=== PATIENT | female | born 1965 | race Asian ===

== ENCOUNTER 2022-10-19 11:38 | Day surgery (SDC) | payer OTHER ==
[2022-10-19] MEDS ORDERED: ONDANSETRON 4 MG/2 ML VIAL IVP STA (12:04)
[2022-10-19] MEDS ORDERED: HYDROmorphone 1 MG/ML CARPUJECT IVP STA (12:04)
--- NOTE | 2022-10-19 12:31 | ED Physician Documentation ---
History of Present Illness - Stated complaint Stated Complaint: ABD PX - Chief complaint Chief Complaint: Abd Pain - Additonal information Additional information: 57-year-old female presents emergency department for evaluation of cute onset abdominal pain. Reports that at 3 AM she woke up and she had pain in her upper abdomen. She thought maybe she had to use the restroom but did not have a bowel movement though later in the morning she did have some diarrhea. She states that she has been nauseated but has had no vomiting. No melena or hematochezia. No fevers. Denies any pertinent past surgical history. Takes no prescribed medications. Patient is otherwise healthy and well-appearing. When the pain did not go away around 9 AM she called her primary office and was told to come to the ER for further evaluation. Review of Systems Constitutional: denies: Fever Cardiac: reports: Reviewed and negative Respiratory: reports: Reviewed and negative GI: reports: Abdominal Pain, Nausea, Diarrhea : reports: Reviewed and negative Skin: reports: Reviewed and negative Musculoskeletal: reports: Reviewed and negative PD PAST MEDICAL HISTORY - Present Medications Home Medications: Ambulatory Orders Medication Instructions Recorded Confirmed No Known Home Medications 10/19/22 10/19/22 - Allergies Allergies/Adverse Reactions: Allergies Allergy/AdvReac Type Severity Reaction Status Date / Time No Known Drug Allergies Allergy Verified 10/19/22 11:51 PD ED PE NORMAL - General General: Alert and oriented X 3, No acute distress, Well developed/nourished - HEENT HEENT: Atraumatic, Moist mucous membranes - Cardiac Cardiac: RRR, No murmur - Respiratory Respiratory: Clear bilaterally - Abdomen Abdomen: Normal bowel sounds, Soft. No: Non tender (Focal tenderness elicited with palpation of the right lower quadrant. No guarding or rebound. Negative Sanchez's.) - Derm Derm: Normal color, Warm and dry, No rash - Extremities Extremities: No deformity - Neuro Neuro: Alert and oriented X 3, operations boardman 2-12 intact Eye Opening: Spontaneous Motor: Obeys Commands Verbal: Oriented GCS Score: 15 Results - Vitals Vitals: Vital Signs - 24 hr 10/19/22 10/19/22 10/19/22 11:48 12:23 13:28 Heart Rate 103 H 62 85 Respiratory 15 16 16 Rate Blood Pressure 124/80 138/80 H O2 Saturation 100 100 100 10/19/22 10/19/22 10/19/22 14:14 15:06 15:33 Heart Rate 87 78 Respiratory 16 15 16 Rate Blood Pressure 147/78 H 144/76 H O2 Saturation 99 100 10/19/22 10/19/22 16:25 16:56 Heart Rate 68 Respiratory 15 16 Rate Blood Pressure O2 Saturation 99 Oxygen O2 Source Room air - Labs Labs: Laboratory Tests 10/19/22 10/19/22 10/19/22 12:15 12:15 12:35 WBC 14.2 H RBC 4.37 Hgb 12.9 Hct 38.7 MCV 88.6 MCH 29.5 MCHC 33.3 RDW 12.8 Plt Count 189 MPV 9.6 Neut # (Auto) 13.5 H Lymph # (Auto) 0.3 L [place] # (Auto) 0.4 Eos # (Auto) 0.0 Baso # (Auto) 0.0 Absolute Nucleated RBC 0.00 Nucleated RBC % 0.0 Sodium 138 Potassium 3.8 Chloride 103 Carbon Dioxide 28 Anion Gap 7.0 BUN 14 Creatinine 0.7 Estimated GFR (MDRD) 86 L Glucose 143 H Calcium 9.3 Total Bilirubin 1.0 AST 22 ALT 19 Alkaline Phosphatase 67 Total Protein 7.7 Albumin 4.5 Globulin 3.2 Albumin/Globulin Ratio 1.4 Lipase 32 Urine Color YELLOW Urine Clarity CLEAR Urine pH 7.0 Ur Specific [place] 1.015 Urine Protein TRACE Urine Glucose (UA) NEGATIVE Urine Ketones TRACE Urine Occult Blood SMALL H Urine Nitrite NEGATIVE Urine Bilirubin NEGATIVE Urine Urobilinogen 0.2 (NORMAL) Ur Leukocyte Esterase NEGATIVE Urine RBC 6-10 H Urine WBC 0-3 Ur Squamous Epith Cells RARE Squamous Urine Bacteria Few Urine Mucus Marked Strands Ur Microscopic Review INDICATED Urine Culture Comments NOT INDICATED - Rads (name of study) abd US limited Relevant Findings:: Other (Per radiologic technologist mammogram possible appendicolith with associated lymphadenopathy) CT abd Relevant Findings:: Final report received (Acute appendicitis. Appendix markedly dilated and obstructed by fecalith. There is some free fluid in the pelvis, cannot exclude recent rupture. Mild ileus pattern) PD Medical Decision Making - ED course Complexity details: reviewed results, re-evaluated patient, considered differential, d/w patient ED course: 57-year-old female presents to the emergency department for evaluation of acute onset upper abdominal pain that woke her from sleep about 3 AM. Patient initially thought that she had to have a bowel movement but ended up having a small amount of diarrhea. When about 6 hours later the pain had not resolved she presents here to the ER. She did have some nausea but no vomiting. No fevers. No pertinent past surgical history. On presentation she is alert and well-appearing. However on abdominal exam there was focal tenderness in the right lower quadrant of the abdomen. I did obtain CBC, electrolytes and urinalysis. Per my interpretation mild leukocytosis with a white count just over 14,000 is noted. No worrisome anemia or other electrolyte derangement. Urinalysis shows no signs of infection. Unfortunately today [facility] does not have CT imaging available. Given the focal tenderness in the right lower quadrant as well as the patient's small body habitus I elected to perform a limited abdominal ultrasound to evaluate for the possibility of acute appendicitis. Per the radiologic technologist mammogram there is some associated lymphadenopathy in the right lower quadrant of the abdomen and a possible appendicolith. With this information and mild white count as well as location of the pain I then spoke on the phone with our surgeon Dr. Akira Herrera. Currently he is in office seeing patients and will come to the ER later to evaluate the patient but in the interim and given lack of CT imaging available today we will proceed with an MRI of the abdomen to help rule out acute micheline endicitis as possible cause of abdominal pain. I have reevaluated the patient and she continues to have pain in the lower abdomen. We will at this point administer a liter of IV fluids as well as 4 mg of morphine for further analgesia. 1600: CT scanner has now come back online and CT was ordered instead of MRI. Unfortunately the CT does show a rather large appendix with a fecalith. Small amount of free fluid within the pelvis which could be a sign of early perforation. I spoke on the phone with Dr. Herrera surgeon on-call. He will be here shortly to evaluate the patient. I have ordered 3.375 g of Zosyn. Patient is n.p.o. and otherwise remains hemodynamically stable It is come to our attention that the patient is the of our on-call surgeon Dr. Herrera (pt's did not initially notify the staff of this.) Today the emergency department evaluation does constitute an emergency. There is no other attending surgeon available at this time that could complete the operation nec essary for a likely perforated appendicitis. The patient has also declined to be transferred to an outlying hospital for further treatment of the appendicitis. As such Dr. Herrera will continue to treat his for the management of acute likely perforated appendicitis. Departure - Departure Disposition: ED Transfer to [facility] Clinical Impression: Acute appendicitis Qualifiers: Acute appendicitis type: unspecified acute appendicitis type Qualified Code(s): K35.80 - Unspecified acute appendicitis Condition: Serious
[2022-10-19 12:33] LABS: BASOPHILS % (AUTO) 0.1 %; HCT - HEMATOCRIT 38.7 % (37.0-47.0); HGB - HEMOGLOBIN 12.9 g/dL (12.0-16.0); LYMPHOCYTES # (AUTO) 0.3 10^3/uL (1.5-3.5); LYMPHOCYTES % (AUTO) 2.3 %; MEAN CORPUSCULAR HEMOGLOBIN 29.5 pg (27.0-31.0); MEAN CORPUSCULAR HGB CONC 33.3 g/dL (32.0-36.0); MEAN CORPUSCULAR VOLUME 88.6 fL (81.0-99.0); MEAN PLATELET VOLUME 9.6 fL (7.9-10.8); MONOCYTES # (AUTO) 0.4 10^3/uL (0.0-1.0); MONOCYTES % (AUTO) 2.6 %; NEUTROPHILS # (AUTO) 13.5 10^3/uL (1.5-6.6); NEUTROPHILS % (AUTO) 94.6 %; PLT - PLATELET COUNT 189 10^3/uL (130-450); RED BLOOD COUNT 4.37 10^6/uL (4.20-5.40); RED CELL DISTRIBUTION WIDTH 12.8 % (12.0-15.0); WHITE BLOOD COUNT 14.2 x10^3/uL (4.8-10.8)
[2022-10-19 12:41] LABS: BILIRUBIN,URINE NEGATIVE (NEGATIVE); GLUCOSE, URINE (UA) NEGATIVE (NEGATIVE); KETONES,URINE (UA) TRACE mg/dL (NEGATIVE); LEUKOCYTE ESTERASE, URINE NEGATIVE (NEGATIVE); NITRITE,URINE NEGATIVE (NEGATIVE); OCCULT BLOOD,URINE SMALL (NEGATIVE); PROTEIN,URINE TRACE mg/dL (NEGATIVE); UROBILINOGEN,URINE 0.2 (NORMAL) E.U./dL (NORMAL)
[2022-10-19 12:42] LABS: CLARITY,URINE CLEAR (CLEAR)
[2022-10-19 12:44] LABS: ALBUMIN 4.5 g/dL (3.2-5.5); ALBUMIN/GLOBULIN RATIO 1.4 (1.0-2.2); CALCIUM 9.3 mg/dL (8.5-10.3); CREATININE 0.7 mg/dL (0.4-1.0); POTASSIUM 3.8 mmol/L (3.5-5.0); TOTAL PROTEIN 7.7 g/dL (6.7-8.2)
[2022-10-19 12:50] LABS: BACTERIA,URINE Few /HPF (None Seen); MUCUS,URINE Marked Strands; SQUAMOUS EPITHELIAL CELL,UR RARE Squamous (<= Few); WBC,URINE 0-3 /HPF (0-5)
[2022-10-19] MEDS ORDERED: SODIUM CHLORIDE 0.9% 1,000 ML IV STA (13:55)
[2022-10-19] MEDS ORDERED: MORPHINE 2 MG/ML CARPUJECT IVP STA (13:56)
--- NOTE | 2022-10-19 13:56 | Ultrasound Report ---
PROCEDURE: Abdomen Limited INDICATIONS: RLQ PAIN TECHNIQUE: Real-time focused scanning was performed of the abdomen with attention to the appendix, with image do cumentation. COMPARISON: None FINDINGS: Appendix visualization: Partial Appendix measurements: Dilated up to 18 mm, with a thin wall. Associated findings: Echogenic fat: Present Appendiceal compressibility: Absent Appendicoliths: Present Nearby free fluid: Absent Lymphadenopathy: Absent Tenderness on exam: Present IMPRESSION: Suspect appendicitis due to the presence of an obstructing appendicolith, as evidenced by a severely distended appendix, appendicolith at the base, and right lower quadrant tenderness with surrounding e chogenic fat. A preliminary interpretation was provided between the carroter and the ER physician at time of exa m. Reviewed by: Andrés Dawson on 10/19/2022 1:55 PM PDT Approved by: Andrés Dawson on 10/19/2022 1:55 PM PDT Station ID: [id number]
[2022-10-19] MEDS ORDERED: iohexoL-300 100 ML VIAL ONE (15:24)
--- NOTE | 2022-10-19 15:54 | CT Report ---
PROCEDURE: ABDOMEN/PELVIS W INDICATIONS: RLQ pain; ? appy CONTRAST: 100mL Omni 300 TECHNIQUE: After the administration of intravenous contrast, 5 mm thick sections acquired from the diaphragms to the symphysis. 5 mm thick coronal and sagittal reformats were acquired. For radiation dose reducti on, the following was used: automated exposure control, adjustment of mA and/or kV according to jany ent size. COMPARISON: Limited abdominal ultrasound dated 10/19/2022 FINDINGS: Image quality: Excellent. Lung bases and heart: Bilateral mammoplasties, otherwise unremarkable.. Liver: No solid mass. Liver cysts. Gallbladder and biliary tree: Gallbladder is somewhat distended without calcified gallstones. No dila aminah ducts. Spleen: No splenomegaly. Pancreas: No pancreatic ductal dilation. Adrenals: No adrenal nodule. Kidneys and ureters: No hydronephrosis. No renal cystic lesion which requires follow up. No solid mas s. Bowel and peritoneum: There is a dilated tubular structure with wall enhancement which is fluid-fille d and has what appears to be calcified fecaliths within it which is consistent with a markedly dilate d inflamed appendix which measures up to 13.5 mm in diameter. It may have possibly ruptured, as there is some free fluid in the pelvis. Mild ileus pattern. Lymph nodes: No central or retroperitoneal adenopathy. Vessels: No infrarenal aortic aneurysm. PELVIS Reproductive organs: Unremarkable. Bladder: No abnormal wall thickening, accounting for underdistension. Pelvic lymph nodes: No pelvic adenopathy by size criteria. Bones: No aggressive osseous abnormality. Other: No significant ventral or inguinal hernia. IMPRESSION: 1. Acute appendicitis. The appendix is markedly dilated and obstructed by a fecalith. There is some f ree fluid in the pelvis. Cannot exclude recent rupture. 2. Mild ileus pattern. Reviewed by: David Morel MD on 10/19/2022 3:53 PM PDT Approved by: David Morel MD on 10/19/2022 3:53 PM PDT Station ID: [id number]
[2022-10-19] MEDS ORDERED: iohexoL-300 100 ML VIAL IVP ONE (15:56)
[2022-10-19] MEDS ORDERED: PIPERACILLIN/TAZOBACTAM 3.375 GM in SODIUM CHLORIDE 0.9% MINIBAG 100 ML IV STA (15:58)
[2022-10-19] MEDS ORDERED: BUPIVACAINE 0.25% PF 30 ML VIAL ONE (16:47)
[2022-10-19] MEDS ORDERED: ROCURONIUM 50 MG/5 ML VIAL ONE (16:51)
[2022-10-19] MEDS ORDERED: PROPOFOL 200 MG/20 ML VIAL IVP ONE (16:51)
--- NOTE | 2022-10-19 16:51 | ANESTHESIA ---
Pre-Anesthesia VS, & Labs - Diagnosis acute appendicitis - Procedure laparoscopic appendectomy Vital Signs: Temp Pulse Resp BP Pulse Ox O2 Flow Rate 68 15 144/76 H 99 10/19/22 16:25 10/19/22 16:25 10/19/22 15:06 10/19/22 16:25 Height: 5 ft 3 in Weight (kg): 48.988 kg Body Mass Index: 19.1 BMI Classification: Normal - NPO >8 hours - Is Patient ?: No - Lab Results Current Lab Results: Laboratory Tests 10/19/22 12:15: Sodium 138, Potassium 3.8, Chloride 103, Carbon Dioxide 28, Anion Gap 7.0, BUN 14, Creatinine 0.7, Estimated GFR (MDRD) 86 L, Glucose 143 H, Calcium 9.3, Total Bilirubin 1.0, AST 22, ALT 19, Alkaline Phosphatase 67, Total Protein 7.7, Albumin 4.5, Globulin 3.2, Albumin/Globulin Ratio 1.4, Lipase 32 10/19/22 12:15: WBC 14.2 H, RBC 4.37, Hgb 12.9, Hct 38.7, MCV 88.6, MCH 29.5, MCHC 33.3, RDW 12.8, Plt Count 189, MPV 9.6, Neut # (Auto) 13.5 H, Lymph # (Auto) 0.3 L, [place] # (Auto) 0.4, Eos # (Auto) 0.0, Baso # (Auto) 0.0, Absolute Nucleated RBC 0.00, Nucleated RBC % 0.0 Fish Bones: 10/19/22 12:15 10/19/22 12:15 Home Medications and Allergies Home Medications: Ambulatory Orders No Known Home Medications 10/19/22 No Known Home Medications 10/19/22 Allergies/Adverse Reactions: Allergies Allergy/AdvReac Type Severity Reaction Status Date / Time No Known Drug Allergies Allergy Verified 10/19/22 11:51 Anes History & Medical History - Anesthetic History Anesthesia Complications: reports: No previous complications - Medical History Cardiovascular: reports: None Pulmonary: reports: None Gastrointestinal: reports: None Urinary: reports: None Neuro: reports: None Musculoskeletal: reports: None Endocrine/Autoimmune: reports: None Blood Disorders: reports: None Skin: reports: None Smoking Status: Never smoker Exam General: Alert, Oriented x3, Cooperative, Mild distress Dental: WNL Mouth Opening: Greater than 4 Fingerbreadths Mallampati classification: I Respiratory: Lungs clear Cardiovascular: Regular rate Plan Anesthesia Type: General Consent for Procedure(s) Verified and Reviewed: Yes Code Status: Attempt Resuscitation ASA classification: 1-Healthy patient Is this case an emergency?: Yes
[2022-10-19] MEDS ORDERED: MIDAZOLAM 2 MG/2 ML VIAL ONE (16:52)
[2022-10-19] MEDS ORDERED: fentaNYL 100 MCG/2 ML VIAL ONE (16:52)
--- NOTE | 2022-10-19 17:21 | HISTORY & PHYSICAL EXAMINATION ---
Chief Complaint - Chief Complaint Chief Complaint: abdominal pain and nausea History of Present Illness - History Obtained From Records Reviewed: yes History obtained from: pt Exam Limitations: none - History of Present Illness HPI Comment/Other: 18 hours of abdominal pain and nausea. pain getting worse and now localizing to the right lower quadrant ct appendicitis wbc elevated History - Past Medical History Cardiovascular: reports: None Respiratory: reports: None Neuro: reports: None Endocrine/Autoimmune: reports: None GI: reports: None [employer] CONVEYOR TENDER: reports: None : reports: None HEENT: reports: None Psych: reports: None Musculoskeletal: reports: None Derm: reports: None MRSA Hx?: No - POLST Patient has POLST: No Meds/Allgy - Home Medications Home Medications: Ambulatory Orders Medication Instructions Recorded Confirmed No Known Home Medications 10/19/22 10/19/22 - Allergies Allergies/Adverse Reactions: Allergies Allergy/AdvReac Type Severity Reaction Status Date / Time No Known Drug Allergies Allergy Verified 10/19/22 11:51 Review of Systems - Other Findings Other Findings: 10 pt ros as above otherwise unremarkable Exam - Vital Signs Reviewed Vital Signs: Yes Vital Signs: Vital Signs x48h Pulse Resp BP Pulse Ox 10/19/22 17:06 16 10/19/22 16:56 16 10/19/22 16:25 68 15 99 10/19/22 15:33 16 10/19/22 15:06 78 15 144/76 H 100 10/19/22 14:14 87 16 147/78 H 99 10/19/22 13:28 85 16 100 10/19/22 12:23 62 16 138/80 H 100 10/19/22 11:48 103 H 15 124/80 100 - Physical Exam General Appearance: positive: No acute distress, Alert Eyes Bilateral: positive: EOMI ENT: positive: No signs of dehydration Neck: positive: No JVD, Trachea midline Respiratory: positive: No respiratory distress Cardiovascular: positive: Regular rate & rhythm Abdomen: positive: No distention, Other (right lower quadrant tenderness present) Neurologic/Psychiatric: positive: Oriented x3 Conclusion/Plan - Problem List (1) Acute appendicitis Conclusion/Plan: plan appendectomy. parq held and consent obtained Qualifiers: Acute appendicitis type: unspecified acute appendicitis type Qualified Code(s): K35.80 - Unspecified acute appendicitis - Lab Results Fish Bones: 10/19/22 12:15 10/19/22 12:15
[2022-10-19] MEDS ORDERED: NALOXONE 0.4 MG/ML VIAL IVP PRN (17:34)
[2022-10-19] MEDS ORDERED: HYDROmorphone 0.5 MG/0.5 ML SYRINGE IVP PRN (17:34)
[2022-10-19] MEDS ORDERED: ePHEDrine 50 MG/ML VIAL IVP PRN (17:34)
[2022-10-19] MEDS ORDERED: fentaNYL 100 MCG/2 ML VIAL IVP PRN (17:34)
[2022-10-19] MEDS ORDERED: MORPHINE 2 MG/ML CARPUJECT IVP PRN (17:34)
[2022-10-19] MEDS ORDERED: METOCLOPRAMIDE 10 MG/2 ML VIAL IVP PRN (17:34)
[2022-10-19] MEDS ORDERED: ONDANSETRON 4 MG/2 ML VIAL IVP PRN ×2 (17:34→18:50)
[2022-10-19] MEDS ORDERED: ATROPINE ABBOJECT 1 MG/10 ML SYRINGE IVP PRN (17:34)
[2022-10-19] MEDS ORDERED: ACETAMINOPHEN 1,000 MG/100 ML 1,000 MG/100 ML BAG IV ONE (17:39)
[2022-10-19] MEDS ORDERED: BUPIVACAINE 0.25% PF 30 ML VIAL SUBQ ONE (17:57)
[2022-10-19] MEDS ORDERED: LACTATED RINGERS 1,000 ML IV SCH (18:00)
[2022-10-19] MEDS ORDERED: DEXAMETHASONE 4 MG/ML VIAL ONE (18:03)
[2022-10-19] MEDS ORDERED: ONDANSETRON 4 MG/2 ML VIAL ONE (18:03)
[2022-10-19] MEDS ORDERED: KETOROLAC 30 MG/ML VIAL ONE (18:23)
[2022-10-19] MEDS ORDERED: SUGAMMADEX 200 MG/2 ML VIAL IVP ONE (18:37)
[2022-10-19] MEDS ORDERED: HYDROcod/ACETAM 5/325 MG TABLET PO PRN (18:50)
[2022-10-19] MEDS ORDERED: LACTATED RINGERS 100 ML IV ONE (18:52)
[2022-10-19] MEDS ORDERED: ACETAMINOPHEN 500 MG TABLET PO PRN (18:56)
--- NOTE | 2022-10-19 19:02 | OPERATIVE REPORT ---
Operative Report - General Procedure Date: 10/19/22 Planned Procedure: lap appy Pre-Op Diagnosis: acute appendicitis Procedure Performed: lap appendectomy Post Op Diagnosis: near gangrenous appendix - Procedure Note Primary Surgeon: ruba tarango Anesthesia Technique: General ET tube, Local Pathology: appendix Estimated Blood Loss (mL): 2 Drain/Tube Type: Other (none) Indications: appendicitis with fecalliths Findings: as above Complications: none - Other Other Information/Narrative: The patient was properly identified brought to the operating room and placed in supine position. The patient was previously given antibiotics. Sequential compression devices were placed. General endotracheal anesthesia was induced. The patient was prepped and draped in a sterile fashion. Local anesthetic was given to incision areas. An infraumbilical incision was made in and proceeded down to the fascia. The fascia was incised lifted upwards and abdomen entered with a Veress needle. CO2 was insufflated to a pressure of 15. A 12 mm trocar was placed with 30 degree scope. There was no evidence of injury from Veress needle or trocar placement. Under direct vision a 5 mm trocar was placed suprapubic and a 5 mm trocar was placed in the right upper quadrant. Appendix was identified and retracted anteriorly. Peritoneal attachments were taken down with careful use of cautery. Appendix was mobilized more anterior. A plane was then created between the mesoappendix and the appendix at the cecum. Appendix was divided with an Endo AMENA intestinal load to include up a small portion of the cecum. The mesoappendix was then divided with an Endo AMENA vascular load. There was secure closure at the cecum and hemostasis was assured. The appendix was brought out. The abdomen was thoroughly irrigated and hemostasis again assured. Trochars were removed under direct vision. Fascia at the infraumbilical site was closed with a running 0 Vicryl suture. Subcutaneous tissue was irrigated and skin reapproximated with buried interrupted 4-0 Monocryl. Dressings were applied. The patient tolerated the procedure well was awakened and brought to recovery in good condition.
--- NOTE | 2022-10-19 19:17 | ANESTHESIA POST OP EVALUATION ---
Anesthesia Post Eval - Post Anesthesia Eval Vitals: Last Vital Signs Temp 36.8 C 10/19/22 19:10 Pulse 95 10/19/22 19:10 Resp 14 10/19/22 19:10 BP 117/96 H 10/19/22 19:10 Pulse Ox 100 10/19/22 19:10 O2 Flow Rate CV Function Including HR & BP: Stable Pain Control: Satisfactory Nausea & Vomiting: Negative Mental Status: Baseline Respiratory Status: Airway Patent Hydration Status: Satisfactory Anesthesia Complications: None
[2022-10-19] MEDS: PIPERACILLIN/TAZOBACTAM 3.375 GM in SODIUM CHLORIDE 0.9% MINIBAG 100 ML IV SCH (20:06)
[2022-10-19] MEDS: D5.45NS W/20 MEQ KCL 1,000 ML IV SCH (20:19)
[2022-10-20] MEDS: PIPERACILLIN/TAZOBACTAM 3.375 GM in SODIUM CHLORIDE 0.9% MINIBAG 100 ML IV SCH ×2 (04:21→11:56)
[2022-10-20] MEDS: D5.45NS W/20 MEQ KCL 1,000 ML IV SCH (05:50)
[2022-10-20 15:09] VITALS: BP 103/59
== END 2022-10-20 15:12 | disposition home or self-care (01) ==
LOC: ED 11:38 → SDS 16:50 → MS2 19:32 → SDS 10-20 15:12
PROVIDERS: ATTEND Surgery
PROC: 0DTJ4ZZ Resection of Appendix, Percutaneous Endoscopic Approach (ICD-10-PCS; principal; 2022-10-19 16:30)
DX: K35.80 Unspecified acute appendicitis (principal)
CPT/HCPCS: 36415; 44970; 74177; 76705; 80053; 81001; 83690; 85025; 96365; 96375; 99285; J0131; J7120; Q9967; 81003; 87086